=== PATIENT | female | born 1965 | race African-American/Black ===

== ENCOUNTER 2017-03-06 09:51 | Emergency (ER) | payer OTHER ==
[~2017-03-06] VITALS: Ht 152.4 cm; Wt 49.9 kg
[2017-03-06] MEDS ORDERED: NKM (10:06)
[2017-03-06] MEDS ORDERED: TdaP Vaccine 0.5ml Syr IM ONE (10:30)
[2017-03-06] MEDS ORDERED: Bacitracin Oint UD TOPIC ONE (11:30)
--- NOTE | 2017-03-06 11:30 | Diagnostic Imaging Report ---
Indications: Left hand pain Technique: 3 views of the left hand. Findings: Comparison: None. No fracture, dislocation, lytic destruction, periosteal reaction, surrounding soft tissue swelling, or other acute changes are demonstrated. No deformity, alignment abnormality, arthritic change, soft tissue calcification, or other chronic changes are demonstrated. IMPRESSION: Negative left hand series.
[2017-03-06] MEDS ORDERED: Lidocaine 1% MPF 10mg/ml 5ml ONE (11:39)
[2017-03-06 12:30] VITALS: BP 129/79
[2017-03-06 12:40] VITALS: BP 129/79
--- NOTE | 2017-03-06 14:33 | Emergency Room Report ---
History of Present Illness General Chief Complaint: Upper Extremity Injury Source: Patient Present Illness HPI 51-year-old female presents to ED complaining of pain to her hands bilaterally. States she was pushing a cart she fell forward injuring both hands. Notes abrasions and bleeding from both hands. Tetanus not up-to-date. Pain is throbbing, 5/10, nonradiating. No other aggravating or relieving factors. Any other injuries. Denies any other associated symptoms Allergies: Coded Allergies: No Known Allergies (Unverified , 03/06/17) Patient History Past Medical History: none Past Surgical History: none Pertinent Family History: none Social History: Denies: alcohol use, drug use, smoking Now: No Immunizations: UTD Reviewed Nursing Documentation: PMH: Agreed, PSxH: Agreed Nursing Documentation-PMH Past Medical History: No Stated History Review of Systems All Other Systems: negative except mentioned in HPI Physical Exam Vital Signs Date Time Temp Pulse Resp B/P Pulse Ox O2 Delivery O2 Flow Rate FiO2 03/06/17 10:03 98.4 114 19 119/72 98 Room Air Sp02 EP Interpretation: reviewed, normal General Appearance: no apparent distress, alert, GCS 15, non-toxic Head: normocephalic Eyes: bilateral eye PERRL, bilateral eye normal inspection ENT: normal ENT inspection Neck: normal inspection Respiratory: normal inspection Cardiovascular #1: normal inspection Gastrointestinal: normal inspection Rectal: deferred Genitourinary: no CVA tenderness Musculoskeletal: tender - L 4th digit] Neurologic: alert, oriented x3, responsive, motor strength/tone normal, sensory intact, speech normal Psychiatric: normal inspection Skin: abrasions - multiple abrasions to bilateral fingers, laceration - 1cm laceration to dorsal aspect L 4th finger. Lymphatic: normal inspection Procedures Laceration/Wound Repair Laceration/Wound Repair : Consent: Verbal Wound Location: upper extremity - L 4th finger Wound's Depth, Shape: linear Wound Explored: clean Betadine Prep?: Yes Anesthesia: 1% Lidocaine Wound Debrided: moderate Wound Repaired With: sutures Suture Size/Type: 6:0, nylon Layer Closure?: No Sterile Dressing Applied?: Yes Splint Applied?: No Patient Tolerated: Well Complications: None Medical Decision Making Diagnostic Impression: Primary Impression: Finger contusion Qualified Codes: S60.00XA - Contusion of unspecified finger without damage to nail, initial encounter Additional Impression: Finger laceration Qualified Codes: S61.219A - Laceration without foreign body of unspecified finger without damage to nail, initial encounter ER Course Hospital Course 51-year-old F presents to ED s/p laceration L 4th finger and multiple abrasions to hands s/p fall Clinical course Patient placed on stretcher. After initial history and physical I ordered tetanus shot, pain medications and x-rays of bilateral hands X-rays were unremarkable. Wound is irrigated. There is a 1 cm laceration to the left fourth finger on the dorsal aspect. Digital block applied. I repaired with 6.0 nylon suture Dressing applied. Diagnosis - finger laceration, finger contusion Stable and discharged to home with prescription for Motrin. wound Care instructions given. Followup with PMD in 10-14 days for suture removal. Return to ED if any signs of infection develop Other X-Ray Diagnostic Results Other X-Ray Diagnostic Results : X-Ray Ordered: L hand, R hand EP Interpretation: Yes Findings: no fractures, no dislocation, no soft tissue swelling Number of Views: 3 Other Impression Right hand-No fracture, no dislocation, no soft tissue swelling Left hand-No fracture, no dislocation, no soft tissue swelling Last Vital Signs Date Time Temp Pulse Resp B/P Pulse Ox O2 Delivery O2 Flow Rate FiO2 03/06/17 12:30 77 16 129/79 97 Room Air 03/06/17 10:03 98.4 Status: improved Disposition: HOME, SELF-CARE Condition: Stable Patient Instructions: Laceration Care, Adult, [id number] Additional Instructions: have sutures removed in 10-14 days MERCEDES RODGERS M.D. March 06, 2017 14:33
--- NOTE | 2017-03-08 08:33 | Diagnostic Imaging Report ---
Indications: Right hand pain Technique: 3 views of the right hand. Findings: Comparison: None. No fracture, dislocation, lytic destruction, periosteal reaction, surrounding soft tissue swelling, or other acute changes are demonstrated. No deformity, alignment abnormality, arthritic change, soft tissue calcification, or other chronic changes are demonstrated. IMPRESSION: Negative right hand series.
== END 2017-03-06 12:40 | disposition home or self-care (01) ==
LOC: EMR 10:38
DX: S61.215A Laceration without foreign body of left ring finger without damage to nail, initial encounter (principal); S60.00XA Contusion of unspecified finger without damage to nail, initial encounter; S60.512A Abrasion of left hand, initial encounter; S60.511A Abrasion of right hand, initial encounter; W19.XXXA Unspecified fall, initial encounter; Y93.9 Activity, unspecified; Y92.9 Unspecified place or not applicable; Z23 Encounter for immunization
CPT/HCPCS: 12001; 73130; 90471; 90715; 96372; 99284; Z7502

== ENCOUNTER 2017-03-19 12:52 | Emergency (ER) | payer OTHER ==
[~2017-03-19] VITALS: Ht 152.4 cm; Wt 49.9 kg
[~2017-03-19 12:52] MED LIST: NKM
[2017-03-19] MEDS ORDERED: ARTIFICIAL TEAR15 ML BOTH EYES (13:16)
--- NOTE | 2017-03-19 13:20 | Emergency Room Report ---
History of Present Illness General Chief Complaint: Wound Recheck/Suture Removal Source: Patient Present Illness [facility] The patient is a 51-year-old female presenting for suture removal and eye redness. The patient states that she had sutures placed onto the left fourth finger 2 weeks prior after falling. She denies any pain to this area. She did notice redness surrounding the area shortly after she went to see her primary doctor and was placed on antibiotics. She states that the redness subsequently resolved. She also noticed left eye redness which began 2 days prior to coming in contact with a colleague for the same symptom. She admits to mild irritation and increased tearing. She denies other symptoms including N, V, F, chills, SANTOS, dizziness, blurred vision, eye discharge Allergies: Coded Allergies: No Known Allergies (Unverified , 03/06/17) Patient History Past Medical History: see triage record Pertinent Family History: none Reviewed Nursing Documentation: PMH: Agreed, PSxH: Agreed Nursing Documentation-PMH Past Medical History: No Stated History Review of Systems All Other Systems: negative except mentioned in HPI Physical Exam Vital Signs Date Time Temp Pulse Resp B/P Pulse Ox O2 Delivery O2 Flow Rate FiO2 03/19/17 12:58 98.8 82 16 118/68 97 Room Air Sp02 EP Interpretation: reviewed, normal General Appearance: no apparent distress, alert, GCS 15, non-toxic Head: normocephalic, atraumatic Eyes: left eye Scleral Injection, bilateral eye EOMI, bilateral eye PERRL ENT: hearing grossly normal, normal pharynx, no angioedema, normal voice Musculoskeletal: back normal, gait/station normal, normal range of motion, tender - TTP over the L 4th digit suture site Neurologic: alert, oriented x3, responsive, motor strength/tone normal, sensory intact, speech normal Psychiatric: judgement/insight normal, memory normal, mood/affect normal, no suicidal/homicidal ideation Skin: normal color, no rash, normal turgor, wd healing/no infection noted, other - L 4th digit 3 sutures intact. No bleeding. No erythema. Well approximated Medical Decision Making PA Attestation Dr. Hoffman is my supervising physician. Patient management was discussed with my supervising physician Diagnostic Impression: Primary Impression: Viral conjunctivitis of left eye Additional Impressions: Encounter for wound re-check Encounter for removal of sutures ER Course The patient is a 51-year-old female presenting for suture removal and eye redness. Differential diagnoses considered but not limited to allergic conjunctivitis, bacterial conjunctivitis, viral conjunctivitis, blepharitis, hordeolum Differential diagnosis considered: Wound infection, nonhealing wound, cellulitis , abscess PE: vitals WNL. NAD HEENT: There is left eye conjunctival injection with increased tearing. PERRL. EOMI. no other discharge There are 3 sutures intact of the left fourth digit over the DIP joint. No erythema. No edema. Sensation is intact. Full active range of motion Suture removal: 3 simple interrupted sutures were removed without complication. No bleeding or discharge. Wound is well approximated. No surrounding erythema. The patient will be discharged home with a prescription for artificial teardrops ER precautions given Last Vital Signs Date Time Temp Pulse Resp B/P Pulse Ox O2 Delivery O2 Flow Rate FiO2 03/19/17 12:58 98.8 82 16 118/68 97 Room Air Status: improved Disposition: HOME, SELF-CARE Condition: Improved Scripts Dextran 70/Hypromellose (ARTIFICIAL TEARS EYE DROPS*) 15 Ml Drops 1 DROP BOTH EYES PRN, #15 ML 0 Refills Prov: LAUREN CASTANEDA 03/19/17 Patient Instructions: Viral Conjunctivitis, Suture Removal, Care After Additional Instructions: I discussed my findings with the patient. All questions and concerns have been answered. Treatment and medication compliance have been addressed. I advised the patient that they need to follow up with PMD in 3-5 days. Return to ED if symptoms worsen, new symptoms arise, or if needed for any reason. Patient verbalized understanding of discharge instructions. LAUREN CASTANEDA Mar 19, 2017 13:20
[2017-03-19 13:27] VITALS: BP 118/68
[2017-03-19 13:30] VITALS: BP 118/68
== END 2017-03-19 13:40 | disposition home or self-care (01) ==
LOC: EMR 13:05
DX: H10.9 Unspecified conjunctivitis (principal); Z48.02 Encounter for removal of sutures
CPT/HCPCS: 99283